=== PATIENT | female | born 1995 | race Caucasian/White ===

== ENCOUNTER → 2017-09-13 | Outpatient (CLI) | payer BC ==
--- NOTE | 2017-09-13 15:17 | US ---
EXAMINATION TYPE: US transvaginal DATE OF EXAM: 09/13/2017 COMPARISON: NONE CLINICAL HISTORY: N93.0 Postcoital And Contact Bleeding; vaginal pain; recent oral and topical medica tions for yeast infection; on oral contraceptives; G0 TECHNIQUE: Transvaginal (TV) per order. Date of LMP: 09/12/2017 EXAM MEASUREMENTS: Uterus: 7.8 x 4.4 x 3.3 cm Endometrial Stripe: 0.2 cm Right Ovary: 2.9 x 2.3 x 1.6 cm Left Ovary: 2.3 x 1.4 x 1.6 cm 1. Uterus: Anteverted; small amount of fluid noted within cervical canal = 0.7 x 0.8 x 0.1cm for day 2 menstrual cycle 2. Endometrium: thickness is wnl for day 2 LMP 3. Right Ovary: multiple small follicles with largest = 0.6 x 0.5 x 0.6cm. 4. Left Ovary: multiple small follicles with largest = 0.6 x 0.5 x 0.5cm. 5. Bilateral Adnexa: wnl 6. Posterior cul-de-sac: small amount of free fluid is noted = 2.1 x 2.9 x 0.4cm. IMPRESSION: 1. Small follicles noted bilaterally ovaries. 2. Small amount of endocervical canal fluid.
== END | disposition home or self-care (01) ==
LOC: RADUSWWP 13:25
PROVIDERS: ATTEND Obstetrics & Gynecology
DX: N93.0 Postcoital and contact bleeding (principal)
CPT/HCPCS: 76830

== ENCOUNTER → 2019-09-04 | Outpatient (CLI) | payer BC ==
--- NOTE | 2019-09-05 11:40 | XR ---
Scoliosis survey history: Spinal curvature, M 54.9 Frontal and lateral views of the thoracic lumbar spine are submitted on 4 images and correlated prior exam 05/15/2017 There is a levoscoliosis centered at L1 corresponding to an angle of approximately 23 degrees similar to prior exam. No other significant interval change. IMPRESSION: Scoliosis.
== END | disposition home or self-care (01) ==
LOC: RAD 17:00
PROVIDERS: ATTEND Family Medicine
DX: M41.9 Scoliosis, unspecified (principal)
CPT/HCPCS: 72082

== ENCOUNTER → 2020-05-13 | Outpatient (CLI) | payer BC | END | disposition home or self-care (01) | LOC: LABWHC1 09:27 | PROVIDERS: ATTEND Family Medicine | DX: J32.9 Chronic sinusitis, unspecified (principal); B97.89 Other viral agents as the cause of diseases classified elsewhere; Z20.828 Contact with and (suspected) exposure to other viral communicable diseases | CPT/HCPCS: U0003; C9803 ==

== ENCOUNTER → 2021-05-11 | Outpatient (CLI) | payer BC | END | disposition home or self-care (01) | LOC: LABWHC1 14:30 | PROVIDERS: ATTEND Family Medicine | DX: Z20.822 Contact with and (suspected) exposure to COVID-19 (principal) | CPT/HCPCS: U0003; C9803; U0005 ==

== ENCOUNTER → 2022-01-28 | Outpatient (CLI) | payer BC | END | disposition home or self-care (01) | LOC: LABWHC1 10:30 | PROVIDERS: ATTEND Family Medicine | DX: U07.1 COVID-19 (principal) | CPT/HCPCS: U0003; U0005 ==

== ENCOUNTER → 2022-05-31 | Outpatient (CLI) | payer BC ==
[2022-05-31 18:55] LABS: HGB 13.7 g/dL (12.0-15.0); MCH 28.7 pg (27.0-32.0); MCHC 32.6 g/dL (32.0-37.0); MCV 88.1 fL (80.0-97.0); Mean Platelet Volume 11.7 fL (9.5-12.2); NRBC Per 100 WBC 0 /100 WBCS (0.0-0.0); Platelet Count 285 X 10*3/uL (140-440); RBC 4.77 X 10*6/uL (4.10-5.20); RDW 12.3 % (11.5-14.5); WBC 7.64 X 10*3/uL (4.50-10.00)
[2022-05-31 20:36] LABS: Ferritin 31.7 ng/mL (10.0-291.0); T4, Free (Free Thyroxine) 1.08 ng/dL (0.800-1.800); Testosterone 15.4 ng/mL (9.01-47.94)
== END | disposition home or self-care (01) ==
LOC: LABWHC1 14:18
PROVIDERS: ATTEND Student in an Organized Health Care Education/Training Program
DX: L65.0 Telogen effluvium (principal)
CPT/HCPCS: 36415; 82306; 82728; 84402; 84403; 84439; 84443; 85027

== ENCOUNTER → 2023-02-14 | Outpatient (CLI) | payer BC ==
--- NOTE | 2023-02-14 09:27 | CT ---
EXAMINATION TYPE: CT abdomen pelvis wo con CT DLP: 210.30 mGycm, Automated exposure control for dose reduction was used. DATE OF EXAM: 02/14/2023 8:23 AM COMPARISON: Abdominal ultrasound 02/22/2022 CLINICAL INDICATION:Female, 27 years old with history of R30.0 DYSURIA R31.9 HEMATURIA, UNSPECIFIED; Dysuria, hematuria, unspecified TECHNIQUE: Standard CT of the abdomen and pelvis without IV or oral contrast. Lack of IV or oral co ntrast limits evaluation of solid and hollow organ viscera. Coronal and sagittal reformats were perfo rmed. FINDINGS: LOWER CHEST: Unremarkable ABDOMEN LIVER: Unremarkable noncontrast appearance. GALLBLADDER AND BILE DUCTS: Unremarkable noncontrast appearance. PANCREAS: Unremarkable noncontrast appearance. SPLEEN: Unremarkable noncontrast appearance. ADRENAL GLANDS: Unremarkable noncontrast appearance.. KIDNEYS AND URETERS: No evidence of hydronephrosis. Nonobstructive right mid kidney 2 mm calculus. No definitive ureteral calculi. PELVIS BLADDER: Under distended, limiting evaluation. No obvious abnormality. REPRODUCTIVE: Unremarkable noncontrast appearance. ABDOMEN & PELVIS STOMACH AND BOWEL: Stomach and duodenum are unremarkable. No focal bowel wall thickening or surroundi ng inflammatory changes. No evidence of bowel obstruction. PERITONEUM: No evidence of pneumoperitoneum or free fluid. VASCULATURE: No evidence of aortic aneurysm. MUSCULOSKELETAL: No acute osseous abnormalities. Levoscoliotic curvature of the thoracolumbar spine w ith apex at L1-L2. LYMPH NODES: No gross evidence for lymphadenopathy. SOFT TISSUE/ABDOMINAL WALL: Unremarkable IMPRESSION: 1. No acute abdominal/pelvic process. 2. Nonobstructive 2 mm right renal calculus.
== END | disposition home or self-care (01) ==
LOC: RADCTMAIN 08:07
PROVIDERS: ATTEND Family Medicine
DX: N20.0 Calculus of kidney (principal); R31.9 Hematuria, unspecified
CPT/HCPCS: 74176